=== PATIENT | male | born 1945 | race Caucasian/White ===

== ENCOUNTER → 2018-11-12 | Day surgery (SDC) | payer OTHER, MEDICARE ==
[~2018-11-12] VITALS: Ht 175.3 cm; Wt 104.3 kg
[~2018-11-12] MED LIST: ASPIR 8181 MG PO; BENICAR20 MG PO; CENTRUM SILVER1 EAC2 PO; COLACE100 MG PO; FLONASE 0.05%50 MCG NASAL; GLUCOPHAGE XR500 MG PO; LIPITOR10 MG PO; NEXIUM40 MG PO; OXYCODONE-ACET1 EAC2 PO; PIOGLITAZONE30 MG PO; SENNA PO; TRAMADOL 50 MG50 MG PO; TYLENOL325 MG PO; ULTRAM 50MG TAB50 MG PO; VITAMIN D1000 UNI1 PO; VITAMIN D3400 UNIT PO; XARELTO10 MG PO; ZOFRAN ODT4 MG PO
--- NOTE | ~2018-11-12 | O ---
[facility] [place] [address] OPERATIVE REPORT Name: NANO MONGE Room #: REG [facility]#: [id number] Admission: 11/12/18 Attend Phys: Attila Romero MD Discharge: Date of : 49 Report #: [id number] THIS REPORT FOR: //name// CC: Anthony Romero DATE OF SERVICE: 11/12/2018 PATIENT OF: Dr. Attila Romero and Dr. Anthony Naqvi. PREOPERATIVE DIAGNOSIS: Umbilical hernia. POSTOPERATIVE DIAGNOSIS: Umbilical hernia. PROCEDURE: Repair of an umbilical hernia. SURGEON: Attila Romero MD ANESTHESIA: Local IV sedation. DESCRIPTION OF PROCEDURE: The patient was brought to the operating room and placed on operative table in the supine position. Sequential compression devices were in place for DVT prophylaxis. There was no indication for preoperative antibiotics. The patient underwent IV sedation and the abdomen was then prepped and draped in a sterile fashion. Skin and subcutaneous tissue around the umbilicus was then infiltrated with 0.5% Marcaine and 1% Xylocaine in a 1:1 mixture. Transverse infraumbilical skin incision was then performed using #15 scalpel blade. Hemostasis obtained using electrocautery. Dissection was carried down through the subcutaneous tissue to the hernia sac, which was dissected free, opened and fascial edges were then dissected free. The fascial defect of the umbilical hernia was then closed using interrupted [id number] #1 Prolene sutures. This came together very easily without any tension. The umbilicus was then tacked to the fascia using simple interrupted 2-0 chromic suture. Deep and superficial subcutaneous tissue was then reapproximated using simple interrupted 2-0 chromic sutures and the skin then closed with a running 4-0 subcuticular Vicryl stitch. The wound was then dressed with Dermabond, Telfa, 4 x 4 gauze, sponge and tape. The patient was then awakened from the IV sedation, taken to recovery room in good condition. Estimated blood loss was approximately 5 mL and the patient tolerated procedure well. All sponge, lap and instrument counts correct x 2. By: [id number] Attila Romero MD /nt
[2018-11-12 10:08] VITALS: BP 147/68
[2018-11-12 12:18] VITALS: BP 147/68
--- NOTE | 2018-11-13 07:24 | EKG ---
[place] [address] [facility] [place] [address] ELECTROCARDIOGRAM REPORT Name: NANO MONGE Room #: REG 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 : 1945 Requested By: Attila Romero Order Number: [id number] MD: Torsten Hua Measurements Intervals [place] Rate: 64 P: 61 WY: 160 QRS: -51 QRSD: 114 T: 24 QT: 415 QTc: 428 Interpretive Statements Sinus rhythm LAD, consider left anterior fascicular block Abnormal R-wave progression, late transition Compared to ECG 05/31/2014 09:22:16 No significant change was found Electronically Signed On 11-13-2018 7:24:19 CDT by Torsten Hua [email or web address] <ELECTRONICALLY SIGNED> By: Torsten Hua MD, [facility] 11/13/18 [id number] [id number] Torsten Hua MD, [facility] /EPI
== END | disposition home or self-care (01) ==
LOC: OR 08:27
DX: K42.9 Umbilical hernia without obstruction or gangrene (principal); I10 Essential (primary) hypertension; E78.5 Hyperlipidemia, unspecified; K21.9 Gastro-esophageal reflux disease without esophagitis; E11.9 Type 2 diabetes mellitus without complications; Z96.651 Presence of right artificial knee joint; Z86.73 Personal history of transient ischemic attack (TIA), and cerebral infarction without residual deficits; Z98.890 Other specified postprocedural states; Z79.899 Other long term (current) drug therapy; Z79.82 Long term (current) use of aspirin; Z87.891 Personal history of nicotine dependence
CPT/HCPCS: 50010; 50101; 50386; 50417; 54118; 56524; 56525; 56526; 62110; 62850; 70005

== ENCOUNTER 2018-11-14 20:35 | Emergency (ER) | payer OTHER, MEDICARE ==
[~2018-11-14] VITALS: Ht 175.3 cm; Wt 104.3 kg
[~2018-11-14 20:35] MED LIST changes: -TRAMADOL 50 MG50 MG PO; -VITAMIN D3400 UNIT PO; -ZOFRAN ODT4 MG PO
[2018-11-14] MEDS ORDERED: VITAMIN D3400 UNIT PO (20:43)
[2018-11-14] MEDS ORDERED: TRAMADOL 50 MG50 MG PO (20:44)
[2018-11-14 21:24] LABS: ABSOLUTE NEUTROPHILS 8.8 thou/uL (1.4-8.2); BASOPHILS 0.5 % (0.0-2.0); EOSINOPHILS 0.3 % (0.0-3.0); LYMPHOCYTES 10.9 % (24.0-44.0); MCH 31.4 pg (26.0-34.0); MCHC 34.1 g/dL (28.0-37.0); MCV 92.1 fL (80.0-100.0); MONOCYTES 5.6 % (1.0-8.0); PLATELET COUNT 185 thou/uL (150-400); POLYS 82.7 % (36.0-66.0); RBC 4.77 mil/uL (4.50-6.00); RDW 13.2 % (10.5-14.5); WBC 10.6 thou/uL (4.0-11.0)
[2018-11-14 21:28] LABS: ANION GAP 11 mmol/L (7-16); BUN 14 mg/dL (7-18); CALCIUM 9.4 mg/dL (8.5-10.1); CHLORIDE 98 mmol/L (98-107); CO2 26 mmol/L (21-32); CREATININE 1.2 mg/dL (0.7-1.3); GLUCOSE 192 mg/dL (74-106); POTASSIUM 3.8 mmol/L (3.5-5.1); SODIUM 135 mmol/L (136-145)
[2018-11-14 21:38] LABS: LIPASE 77 U/L (73-393); SGOT 18 U/L (15-37); SGPT 25 U/L (30-65); TOTAL BILIRUBIN 0.4 mg/dL (<0.1-1.0); TOTAL PROTEIN 7.8 g/dL (6.4-8.2); TROPONIN-I <0.06 ng/mL (<0.06)
[2018-11-14 23:19] LABS: URINE BILIRUBIN NEGATIVE (Negative); URINE BLOOD NEGATIVE (Negative); URINE CLARITY CLEAR; URINE COLOR YELLOW; URINE GLUCOSE-RANDOM* TRACE (Negative); URINE KETONES NEGATIVE (Negative); URINE LEUKOCYTES-REFLEX NEGATIVE (Negative); URINE NITRITE-REFLEX NEGATIVE (Negative); URINE PROTEIN (DIPSTICK) NEGATIVE (Negative); URINE UROBILINOGEN 0.2 E.U./dl (0.2-1.0)
[2018-11-15] MEDS ORDERED: ZOFRAN ODT4 MG PO (00:07)
[2018-11-15 00:15] VITALS: BP 172/87
--- NOTE | 2018-11-15 10:41 | EKG ---
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: ulices : 1945 Requested By: Deisy Arora Order Number: [id number] MD: Torsten Hua Measurements Intervals [place] Rate: 80 P: 43 RI: 154 QRS: -64 QRSD: 112 T: 63 QT: 364 QTc: 420 Interpretive Statements Sinus rhythm Left anterior fascicular block Abnormal R-wave progression, late transition Compared to ECG 11/12/2018 09:09:07 No significant changes Electronically Signed On 11-15-2018 10:41:15 CDT by Torsten Hua [email or web address] <ELECTRONICALLY SIGNED> By: Torsten Hua MD, [facility] 11/15/18 [phone] Torsten Hua MD, [facility] /EPI
== END 2018-11-15 00:15 | disposition still patient (30) ==
LOC: ER 20:35
PROVIDERS: Nurse Practitioner Family
DX: G89.18 Other acute postprocedural pain (principal); R10.30 Lower abdominal pain, unspecified; I71.4 Abdominal aortic aneurysm, without rupture; K21.9 Gastro-esophageal reflux disease without esophagitis; E11.9 Type 2 diabetes mellitus without complications; I10 Essential (primary) hypertension; E78.5 Hyperlipidemia, unspecified; Z96.651 Presence of right artificial knee joint; Z86.73 Personal history of transient ischemic attack (TIA), and cerebral infarction without residual deficits; Z87.891 Personal history of nicotine dependence

== ENCOUNTER → 2019-04-23 | Outpatient (CLI) | payer OTHER, MEDICARE ==
[~2019-04-23] MED LIST changes: +TRAMADOL 50 MG50 MG PO; +VITAMIN D3400 UNIT PO; +ZOFRAN ODT4 MG PO
== END ==
LOC: SJCVCIMAG 10:37
DX: I65.21 Occlusion and stenosis of right carotid artery (principal); I71.4 Abdominal aortic aneurysm, without rupture; I25.10 Atherosclerotic heart disease of native coronary artery without angina pectoris; E78.00 Pure hypercholesterolemia, unspecified; E11.22 Type 2 diabetes mellitus with diabetic chronic kidney disease; N18.2 Chronic kidney disease, stage 2 (mild); K21.9 Gastro-esophageal reflux disease without esophagitis; G47.30 Sleep apnea, unspecified; Z79.82 Long term (current) use of aspirin; Z79.899 Other long term (current) drug therapy

== ENCOUNTER → 2019-10-12 | Outpatient (CLI) | payer OTHER, MEDICARE | LOC: SJCVC 11:10 → SJCVCIMAG 11:10 | PROVIDERS: ATTEND Internal Medicine Cardiovascular Disease | DX: R94.31 Abnormal electrocardiogram [ECG] [EKG] (principal); I45.10 Unspecified right bundle-branch block; I11.9 Hypertensive heart disease without heart failure; I25.10 Atherosclerotic heart disease of native coronary artery without angina pectoris; E78.00 Pure hypercholesterolemia, unspecified; E11.9 Type 2 diabetes mellitus without complications; I65.23 Occlusion and stenosis of bilateral carotid arteries; F17.200 Nicotine dependence, unspecified, uncomplicated; Z95.5 Presence of coronary angioplasty implant and graft; Z79.899 Other long term (current) drug therapy ==

== ENCOUNTER → 2020-01-14 | Outpatient (CLI) | payer OTHER, MEDICARE | LOC: SJCVCIMAG 08:53 | PROVIDERS: ATTEND Internal Medicine Cardiovascular Disease | DX: I45.2 Bifascicular block (principal); I11.9 Hypertensive heart disease without heart failure; I25.10 Atherosclerotic heart disease of native coronary artery without angina pectoris; E78.5 Hyperlipidemia, unspecified; F17.200 Nicotine dependence, unspecified, uncomplicated; Z98.61 Coronary angioplasty status ==

== ENCOUNTER → 2020-08-18 | Outpatient (CLI) | payer OTHER, MEDICARE | LOC: SJCVC 13:10 | PROVIDERS: ATTEND Internal Medicine Cardiovascular Disease | DX: R94.31 Abnormal electrocardiogram [ECG] [EKG] (principal); I25.10 Atherosclerotic heart disease of native coronary artery without angina pectoris; E78.00 Pure hypercholesterolemia, unspecified; I65.23 Occlusion and stenosis of bilateral carotid arteries; I12.9 Hypertensive chronic kidney disease with stage 1 through stage 4 chronic kidney disease, or unspecified chronic kidney disease; E11.22 Type 2 diabetes mellitus with diabetic chronic kidney disease; N18.2 Chronic kidney disease, stage 2 (mild); I71.4 Abdominal aortic aneurysm, without rupture; M19.90 Unspecified osteoarthritis, unspecified site; K21.9 Gastro-esophageal reflux disease without esophagitis; E55.9 Vitamin D deficiency, unspecified; F17.290 Nicotine dependence, other tobacco product, uncomplicated; Z95.5 Presence of coronary angioplasty implant and graft; Z95.820 Peripheral vascular angioplasty status with implants and grafts; Z79.82 Long term (current) use of aspirin; Z79.899 Other long term (current) drug therapy; Z72.89 Other problems related to lifestyle ==

== ENCOUNTER → 2020-12-29 | Outpatient (CLI) | payer OTHER, MEDICARE | LOC: SJCVCIMAG 08:06 | PROVIDERS: ATTEND Internal Medicine Cardiovascular Disease | DX: I71.4 Abdominal aortic aneurysm, without rupture (principal); I25.10 Atherosclerotic heart disease of native coronary artery without angina pectoris; E11.9 Type 2 diabetes mellitus without complications; K21.9 Gastro-esophageal reflux disease without esophagitis; E78.00 Pure hypercholesterolemia, unspecified; G47.33 Obstructive sleep apnea (adult) (pediatric); Z95.818 Presence of other cardiac implants and grafts; F17.200 Nicotine dependence, unspecified, uncomplicated; Z72.89 Other problems related to lifestyle; Z79.82 Long term (current) use of aspirin; Z79.899 Other long term (current) drug therapy ==